=== PATIENT | male | born 1995 | race Hispanic/Latino ===

== ENCOUNTER 2018-01-16 05:12 | Emergency (ER) | payer SELFPAY ==
[2018-01-16 05:35] VITALS: BMI 25.8
[2018-01-16] MEDS ORDERED: Tdap Vaccine 0.5 ml Vial (10-64 yrs) IM ONE ×2 (05:35→05:40)
--- NOTE | 2018-01-16 05:39 | ED PDOC ---
HPI: Psych/Substance Abuse Time Seen by Provider: 01/16/18 05:28 Chief Complaint (Nursing): Alcohol Ingestion History Per: Patient, EMS Additional Complaint(s): Pt. brought in by EMS for ETOH intoxication. Admits to drinking "10 shots" for his birthday. States he was arrested and released by voice over artist and was also handcuffed. Now sustained injuries to his wrist secondary to the handcuffs. Denies numbness, tingling, other injury. Past Medical History Reviewed: Historical Data, Nursing Documentation, Vital Signs - Medical History PMH: Asthma (childhood) - Surgical History Surgical History: No Surg Hx - Family History Family History: States: No Known Family Hx - Home Medications Home Medications: Ambulatory Orders Medication Instructions Recorded Ibuprofen [Motrin] 600 mg PO Q6H PRN #20 tab 11/25/14 - Allergies Allergies/Adverse Reactions: Allergies Allergy/AdvReac Type Severity Reaction Status Date / Time No Known Allergies Allergy Verified 11/25/14 08:48 Review of Systems ROS Statement: Except As Marked, All Systems Reviewed And Found Negative Physical Exam - Physical Exam Appears: Positive for: Well, Non-toxic, No Acute Distress Skin: Positive for: Normal Color, Warm. Negative for: Rash Eye Exam: Positive for: Normal appearance Pulses-Radial (L): 2+ Pulses-Radial (R): 2+ Extremity: Positive for: Capillary Refill (< 2 seconds of b/l upper extremities) , Other (circumferential erythema to b/l wrists with superficial abrasions on L dorsal hand; b/l upper extremities without tenderness, swelling, or deformity) Neurologic/Psych: Positive for: Alert, Oriented (x3), Gait (steady, unassisted) , Other (No slurred speech.). Negative for: Aphasia, Facial Droop - Progress ED Course And Treament: Tetanus prophylaxis administered. Pt. was dc'd under his girlfriend's (kadeem) supervision who is at bedside. Disposition - Clinical Impression Clinical Impression: Alcohol intoxication, Multiple abrasions - Patient ED Disposition Is Patient to be Admitted: No - Disposition Referrals: [facility] [Outside] Disposition: Routine/Home Disposition Time: 05:36 Condition: STABLE Additional Instructions: DELFINA BEDOYA, thank you for letting us take care of you today. Your provider was Zeferino Tyler MD and you were treated for ETOH. The emergency medical care you received today was directed at your acute symptoms. If you were prescribed any medication, please fill it and take as directed. It may take several days for your symptoms to resolve. Return to the Emergency Department if your symptoms worsen, do not improve, or if you have any other problems. Please contact your doctor or call one of the physicians/clinics you have been referred to that are listed on the Patient Visit Information form that is included in your discharge packet. Bring any paperwork you were given at discharge with you along with any medications you are taking to your follow up visit. Our treatment cannot replace ongoing medical care by a primary care provider outside of the emergency department. Thank you for allowing the [facility] team to be part of your care today. If you had an X-Ray or CT scan: A Radiologist will review the ED reading if any change in treatment is needed we will contact you. If you had a blood, urine, or wound culture: It will take several days for the results, if any change in treatment is needed we will contact you. If you had an STI test: It will take 48 hours for the results. Please call after 1 week if you have not heard back. Instructions: Alcohol Abuse and Alcoholism (DC), Skin Abrasions (DC) Forms: [employer] (Indonesian)
[2018-01-16 06:15] VITALS: BP 132/74; PULSE 112; RESP 18; TEMP 98.2; O2SAT 99
== END 2018-01-16 06:05 | disposition home or self-care (01) ==
LOC: H.ER 05:12
DX: F10.129 Alcohol abuse with intoxication, unspecified (principal); S60.812A Abrasion of left wrist, initial encounter; S60.811A Abrasion of right wrist, initial encounter; Y35.93XA Legal intervention, means unspecified, suspect injured, initial encounter; Y92.89 Other specified places as the place of occurrence of the external cause